=== PATIENT | female | born 1975 | race Caucasian/White ===

== ENCOUNTER 2017-04-23 18:09 | Outpatient (CLI) | payer OTHER ==
[~2017-04-23 18:09] MED LIST: ACET-141 PO; BUTA1CAP PO; DOCU-144 PO; ONDA4TAB8 PO; SERT-165 PO; ZOLP5TAB7 PO
[2017-04-23 18:42] VITALS: BP 118/75; PULSE 87; RESP 18
--- NOTE | 2017-04-23 19:14 | RADRPT ---
PROCEDURE: Obstetrical ultrasound for biophysical profile CLINICAL INDICATION: Biophysical profile. . TECHNIQUE: Obstetrical ultrasound of the uterus for biophysical profile. Transabdominal views are obtained. COMPARISON: US PELVIS 01/12/2016 FINDINGS: Single intrauterine gestation. Presentation: Cephalic. Placenta: Anterior. No evidence of placental abruption. No evidence of placenta previa. breathing movement = 2/2 tone = 2/2 motion = 2/2 ROBB = 2/2 ROBB = 11.8 cm heart rate: 156 beats per minute IMPRESSION: Single intrauterine gestation. Biophysical profile 12/23 RPTAT: AADD .Ricardo Villanueva MD, MD Date Time Electronically viewed and signed by .Ricardo Villanueva MD, on 04/23/2017 19:14 .B/
[2017-04-23] MEDS ORDERED: AL HYDROX/MG HYDROX/SIMETH 30 ML CUP PO ONE (21:00)
[2017-04-23 21:42] LABS: BARBITURATES Negative (NEGATIVE); BENZODIAZEPINES Negative (NEGATIVE); CANNABINOIDS Negative (NEGATIVE); COCAINE Negative (NEGATIVE); OPIATES Negative (NEGATIVE)
[2017-04-23] MEDS ORDERED: BEN50 PO (22:40)
[2017-04-23] MEDS ORDERED: UDROBDM PO (22:41)
--- NOTE | 2017-04-23 23:57 | PN ---
Triage Information Date/Time 04/23/1712/01/2344 Reason for visit: syncopal episodes s/p surgical procedure for brain aneurism 2.5yrs ago Weeks of Gestation IUP 29w2d /Para A3(sab) Diabetes: none Additional information hx of HTN c/o flu sx nasal congestion nausea and heart burn relieved with [place] Objective Vital Signs Date Time Temp Pulse Resp B/P Pulse Ox O2 Delivery O2 Flow Rate FiO2 04/23/17 18:42 98.0 87 18 118/75 99 Room Air Heart Rate: 150's Results/Medications Results 24 hrs Laboratory Tests Test 04/23/17 20:30 Urine Opiates Screen Negative Urine Barbiturates Negative Urine Amphetamines Screen Negative Urine Benzodiazepines Screen Negative Urine Cocaine Screen Negative Urine Cannabinoids Negative Imaging Results BPP 8 ROBB 11.8 Disposition: to ER for evaluation for syncope and flu syndrome Assessment/Plan syncope flue syndrome IUP 29w2d plan UDS to ER for evaluation for syncope and flu syndrome LISY DAUGHERTY MD Apr 23, 2017 23:57
--- NOTE | 2017-04-24 06:54 | TRIAGE ---
OB Triage Datetime Report Generated by CPN: 04/24/2017 01:44 Datetime: 04/23/2017 18:32 EGA: 29.2 Time Provider Notified: 04/23/2017 18:46 Provider Notified: Dr Miles Datetime: 04/23/2017 18:31 Time of Arrival: 04/23/2017 17:55 Arrived By: Stretcher Arrived From: Home Chief Complaint: syncope Movement: Present Contractions: Denies/Absent Rupture of Membranes: Denies Vaginal Bleeding: None Vaginal Discharge: Denies Recent Sexual Intercouse: Yes Abdominal Trauma: Not Applicable Patient Complaints: Other Additional Patient Complaints: Hx aneurysm 2 yrs ago w/ coil in place Initial Plan: efm/ u/s Datetime: 04/23/2017 18:15 Stage of : OB Triage Maternal Assessment Level of Consciousness: Fully Conscious DTR's/Clonus: DTRs 2+; No Clonus Headache: Denies Blurred Vision: No Respiratory Effort: Unlabored; Regular Rhythm; Equal Expansion Breath Sounds, Left: Clear and Equal Breath Sounds, Right: Clear and Equal Nausea/Vomiting: Denies RUQ Epigastric Pain: Denies Lower Extremities Edema: None Degree: None Upper Extremities Edema: None Degree: None Facial Edema: None Temperature Route: Oral Fall Risk Assessment History of Falling: (0) No Secondary Diagnosis: (0) No Ambulatory Aid: (0) Bedrest/Nurse Assist IV Therapy: (0) No Gait: (0) Normal/Bedrest/Immobile Mental Status: (0) Oriented to Own Ability Fall Score: 0 Fall Risk Score Definition: No Risk: No action required Labor Evaluation Frequency: none Monitor Mode: External Heart Rate FHR Baseline Rate: 153 Monitor Mode: External US Pain Assessment Pain Scale: 0
== END 2017-04-23 21:47 | disposition home or self-care (01) ==
LOC: OBT 18:09 → L-D 18:11 → OBT 21:47
DX: O26.893 Other specified pregnancy related conditions, third trimester (principal); R55 Syncope and collapse; O16.3 Unspecified maternal hypertension, third trimester; Z3A.29 29 weeks gestation of pregnancy
CPT/HCPCS: 76818; 80307; Z7500; Z7610; G0463

== ENCOUNTER 2017-04-23 21:50 | Emergency (ER) | payer OTHER ==
[~2017-04-23] VITALS: Ht 162.6 cm; Wt 77.0 kg
[2017-04-23 21:54] VITALS: Ht 162.6 cm; Wt 77.0 kg
--- NOTE | 2017-04-23 22:29 | ERD ---
ER Documentation Chief Complaint Chief Complaint FLU-LIKE SYMPTOMS HPI The patient is a 42-year-old female, presenting to the ER because of nasal congestion, nasal discharge, intermittent cough. She is 7 months , came to the ER from labor and delivery where she was cleared. She denies fever , chills, neck pain, chest pain, pleuritic chest pain, chest pain with exertion/ vomiting/diaphoresis, neck pain, vomiting, dysuria, diarrhea, constipation. She does not smoke nor drink Past medical history: Depression Surgical history: Brain aneurysm, D&C, cholecystectomy ROS All systems reviewed and are negative except as per history of present illness. Medications Home Meds Active Scripts Guaifenesin-Dextromethorphan* (Robitussin* DM) 100MG/10MG/5ML Syrup, 10 ML PO Q4H Y for COUGH, #120 ML Prov:ADAIR VANG MD 04/23/17 Diphenhydramine Hcl* (Benadryl*) 50 Mg Cap, 50 MG PO Q6 Y for congestion, #20 CAP Prov:ADAIR VANG MD 04/23/17 Discontinued Reported Medications Hcmgeeuuwj-Nopwrnsjsxllt-Craianzv* (Fwgvfstvks-Ekwlxtddxjwfj-Jfkbnlly*) 50-325- 40 Mg Capsule, 1 CAP PO HS for PAIN, CAP 03/09/15 Sertraline Hcl* (Sertraline Hcl*) 100 Mg Tablet, 100 MG PO DAILY, TAB 02/01/15 Zolpidem Tartrate* (Zolpidem Tartrate*) 5 Mg Tablet, 5 MG PO HS Y, TAB 02/01/15 Acetaminophen* (Acetaminophen*) 500 MG Extra Strength Tablet, 500 MG PO Q6 Y for PAIN AND OR ELEVATED TEMP, TAB 02/01/15 Discontinued Scripts Ondansetron Hcl* (Zofran*) 4 Mg Tablet, 4 MG PO Q6H for NAUSEA AND/OR VOMITING, #30 TAB Prov:DARREN PEREZ MD 02/08/15 Docusate Sodium* (Colace*) 100 Mg Capsule, 100 MG PO BID, #30 CAP Prov:REAGAN NORTON DO 02/02/15 Allergies Allergies: Coded Allergies: Penicillins (Verified Allergy, Intermediate, HIVES, 01/12/16) No Known Drug Allergy (Verified Allergy, Mild, 04/23/17) PMhx/Soc History of Surgery: Yes (S/P coiling of aneurysm 07/2014) Anesthesia Reaction: No Hx Neurological Disorder: Yes (CVA) Hx Respiratory Disorders: No Hx Cardiac Disorders: No Hx Psychiatric Problems: Yes (depression) Hx Miscellaneous Medical Probl: Yes (depression, cocaine use, aneurysm) Hx Alcohol Use: No Hx Substance Use: Yes (Methamphetamine and cocaine) Hx Tobacco Use: No Physical Exam Vitals Vital Signs Date Time Temp Pulse Resp B/P Pulse Ox O2 Delivery O2 Flow Rate FiO2 04/23/17 21:54 98.3 105 18 131/82 100 Physical Exam Const: No acute distress. Head: Atraumatic. Eyes: Normal Conjunctiva. ENT: Normal External Ears, Nose and Mouth. BL Tympanic membranes and oropharynx are within normal limits Neck: Full range of motion. No meningismus. Resp: Clear to auscultation bilaterally. Cardio: Regular rate and rhythm. Abd: Soft, non distended, normal bowel sounds, non tender. Skin: No petechiae or rashes. Back: No midline or flank tenderness. Ext: No cyanosis, or edema. Neur: Awake and alert. No focal deficit Psych: Normal Mood and Affect. Procedures/MDM MEDICAL MAKING DECISION: The patient is a 42-year-old female, presenting to the ER because of acute viral syndrome, stable for outpatient follow-up The differential diagnoses considered include but are not limited to influenza, bronchitis, pneumonia, PE, pneumothorax Departure Diagnosis: Primary Impression: Viral syndrome Condition: Good Comments She was discharged with Benadryl and Robitussin-DM The patient's blood pressure was elevated (>120/80) but appears stable without evidence of hypertension emergency or urgency. The patient was counseled about the risks of hypertension and urged to pursue outpatient monitoring and therapy within a week with their primary care physician. I discussed the findings with the patient. I advised the patient to follow-up with the primary physician in about 1-2 days, sooner if needed and return if any concern. Disclaimer: Inadvertent spelling and grammatical errors are likely due to EHR/ dictation software use and do not reflect on the overall quality of patient care. Also, please note that the electronic time recorded on this note does not necessarily reflect the actual time of the patient encounter. ADAIR VANG MD Apr 23, 2017 22:29
[2017-04-23] MEDS ORDERED: BEN50 PO (22:40)
[2017-04-23] MEDS ORDERED: UDROBDM PO (22:41)
== END 2017-04-23 23:06 | disposition home or self-care (01) ==
LOC: FTE 21:50
DX: B34.9 Viral infection, unspecified (principal)
CPT/HCPCS: 99283

== ENCOUNTER 2017-05-08 17:12 | Outpatient (CLI) | payer OTHER ==
[~2017-05-08] VITALS: Ht 170.2 cm; Wt 80.3 kg
[~2017-05-08 17:12] MED LIST changes: -ACET-141 PO; +BEN50 PO; -BUTA1CAP PO; -DOCU-144 PO; -ONDA4TAB8 PO; -SERT-165 PO; +UDROBDM PO; -ZOLP5TAB7 PO
[2017-05-08 17:33] VITALS: BP 129/88; PULSE 98; Ht 170.2 cm; Wt 80.3 kg
[2017-05-08] MEDS ORDERED: PNV11TAB PO (17:36)
[2017-05-08] MEDS ORDERED: LEVE-5 PO (17:43)
[2017-05-08 18:23] LABS: ADD UMIC NO; UR ASCORBIC ACID NEGATIVE (NEGATIVE); UR BILIRUBIN (Dip) NEGATIVE (NEGATIVE); UR BLOOD (Dip) NEGATIVE (NEGATIVE); UR CLARITY CLEAR (CLEAR); UR COLOR YELLOW (YELLOW); UR GLUCOSE (Dip) NEGATIVE (NEGATIVE); UR KETONES (Dip) NEGATIVE (NEGATIVE); UR LEUKOCYTE ESTERASE (Dip) NEGATIVE Leu/ul (NEGATIVE); UR NITRITE (Dip) NEGATIVE (NEGATIVE); UR SPECIFIC GRAVITY (Dip) 1.017 (1.003-1.030); UR TOTAL PROTEIN (Dip) NEGATIVE (NEGATIVE); UR UROBILINOGEN (Dip) NEGATIVE (NEGATIVE)
[2017-05-08 18:41] LABS: BASOPHILS % 0.3 % (0.0-2.0); EOSINOPHILS # 0.2 10^3/ul (0.0-0.5); EOSINOPHILS % 1.7 % (0.0-7.0); HEMATOCRIT 35.6 % (37.0-47.0); HEMOGLOBIN 12.3 g/dl (12.0-16.0); LYMPHOCYTES # 2.2 10^3/ul (0.8-2.9); LYMPHOCYTES % 23.9 % (15.0-51.0); MEAN CORPUSCULAR HEMOGLOBIN 30.3 pg (29.0-33.0); MEAN CORPUSCULAR HGB CONC 34.6 g/dl (32.0-37.0); MEAN CORPUSCULAR VOLUME 87.7 fl (82.0-101.0); MEAN PLATELET VOLUME 10.9 fl (7.4-10.4); MONOCYTE # 0.6 10^3/ul (0.3-0.9); MONOCYTES % 6.4 % (0.0-11.0); NEUTROPHIL # 6.1 10^3/ul (1.6-7.5); NEUTROPHILS % 67.4 % (39.0-77.0); PLATELET COUNT 279 10^3/UL (140-415); RED BLOOD COUNT 4.06 10^6/ul (4.20-5.40); RED CELL DISTRIBUTION WIDTH 14.6 % (11.5-14.5); WHITE BLOOD COUNT 9.1 10^3/ul (4.8-10.8)
--- NOTE | 2017-05-08 18:59 | RADRPT ---
PROCEDURE: US OB. US OB Estimated Weight CLINICAL INDICATION: ptl TECHNIQUE: Multiple sonographic images of the pelvis were obtained. The images were reviewed on a PACS workstation. COMPARISON: 04/23/2017 FINDINGS: The cervix is closed with a length of . There is a single viable intrauterine gestation. Cardiac activity is present with 161 beats per min ami. There is a vertex presentation. Measurements were made in order to determine age. The results are as follows: BPD =7.4 cm. HC =27.1 cm. AC =27.8 cm. FL =6.0 cm. Estimated gestational age of approximately 30 weeks and 5 days. The estimated date of delivery is 07/12/2017. Estimated delivery date by last menstrual period is 0 07/07/2017. The EFW = 1735 grams . The placenta is anterior. There is no evidence for an abruption or placenta previa. IMPRESSION: Single viable intrauterine gestation of approximately 30 weeks and 5 days. The estimated date of de livery is 07/12/2017. RPTAT: DD . .Tono eBth MD, Date Time Electronically viewed and signed by .Tono Beth MD, MD on 05/08/2017 18:58 .T/
--- NOTE | 2017-05-08 19:00 | RADRPT ---
PROCEDURE: US biophysical profile. CLINICAL INDICATION: PTL. well-being. TECHNIQUE: Multiple sonographic images of the uterus were obtained. The images were revi ewed on a PACS workstation. COMPARISON: 04/23/2017. FINDINGS: There is a single live intrauterine gestation. heart rate is 156 beats per minute. The position is cephalic. The placenta is anterior, grade 1. The ROBB is 12.1 cm. The cervical length measures 3.2 cm. Breathing Movement: 2 Gross Body Movement: 2 Tone: 2 Qualitative Amniotic Fluid Volume: 2 TOTAL: 8 IMPRESSION: 1. Single viable intrauterine gestation. 2. Biophysical profile = 12/23. 3. ROBB = 12.1 cm. 4. The cervical length measures 3.2 cm. RPTAT: HFN .Neo Johnson MD, MD Date Time Electronically viewed and signed by .Neo Johnson MD, MD on 05/08/2017 19:00 .N/
--- NOTE | 2017-05-08 19:57 | PN ---
Triage Information Date/Time Reason for visit: Uterine contractions Weeks of Gestation 31w 3d /Para Objective Vital Signs Date Time Temp Pulse Resp B/P Pulse Ox O2 Delivery O2 Flow Rate FiO2 05/08/17 17:33 98.3 98 129/88 Heart Rate Comments reactive Contractions: None Exam FFN neg Results/Medications Result Diagram: 05/08/17 1759 Results 24 hrs Laboratory Tests Test 05/08/17 17:35 05/08/17 17:59 05/08/17 18:00 Urine Color YELLOW Urine Clarity CLEAR Urine pH 7.0 Urine Specific [place] 1.017 Urine Ketones NEGATIVE Urine Nitrite NEGATIVE Urine Bilirubin NEGATIVE Urine Urobilinogen NEGATIVE Urine Leukocyte Esterase NEGATIVE Urine Hemoglobin NEGATIVE Urine Glucose NEGATIVE Urine Total Protein NEGATIVE White Blood Count 9.1 Red Blood Count 4.06 L Hemoglobin 12.3 Hematocrit 35.6 L Mean Corpuscular Volume 87.7 Mean Corpuscular Hemoglobin 30.3 Mean Corpuscular Hemoglobin Concent 34.6 Red Cell Distribution Width 14.6 H Platelet Count 279 Mean Platelet Volume 10.9 #H Neutrophils % 67.4 Lymphocytes % 23.9 Monocytes % 6.4 Eosinophils % 1.7 Basophils % 0.3 Nucleated Red Blood Cells % 0.0 Neutrophils # 6.1 Lymphocytes # 2.2 Monocytes # 0.6 Eosinophils # 0.2 Basophils # 0.0 Nucleated Red Blood Cells # 0.0 Fibronectin NEGATIVE Imaging Results BPP 8/, ROBB 12.1, CL 3.2cm Disposition: Discharge ARIADNE CARMICHAEL May 08, 2017 19:57
--- NOTE | 2017-05-08 20:16 | TRIAGE ---
OB Triage Datetime Report Generated by CPN: 05/08/2017 20:16 Datetime: 05/08/2017 19:50 Stage of : OB Triage Datetime: 05/08/2017 17:44 Stage of : OB Triage Datetime: 05/08/2017 17:30 Stage of : OB Triage Assessment Type: Triage Maternal Assessment Level of Consciousness: Fully Conscious DTR's/Clonus: DTRs 2+; No Clonus Headache: Denies Blurred Vision: No Respiratory Effort: Unlabored; Regular Rhythm; Equal Expansion Breath Sounds, Left: Clear and Equal Breath Sounds, Right: Clear and Equal Nausea/Vomiting: Denies RUQ Epigastric Pain: Denies Facial Edema: None Temperature Route: Axillary Fall Risk Assessment History of Falling: (0) No Secondary Diagnosis: (0) No Ambulatory Aid: (0) Bedrest/Nurse Assist IV Therapy: (0) No Gait: (0) Normal/Bedrest/Immobile Mental Status: (0) Oriented to Own Ability Fall Score: 0 Fall Risk Score Definition: No Risk: No action required Labor Evaluation Frequency: 0 Monitor Mode: External Resting Tone [place]: Relaxed Heart Rate FHR Baseline Rate: 145 Monitor Mode: External US Variability: Moderate 6-25 bpm Accelerations: 10X10 Decelerations: None Category: Category I Pain Assessment Pain Scale: 7 Pain Presence: Intermittent Pain Type: Cramping Pain Location: Abdomen Pain Goal: 3 Pain Relief Measures: Comfort Measures Datetime: 05/08/2017 17:28 Time of Arrival: 05/08/2017 17:01 EGA: 31.3 Arrived By: Ambulatory Arrived From: Home Chief Complaint: C/O UC'S (ABDOMINAL PAIN) SINCE YESTERDAY THAT HAS GOTTEN PROGRESSIVELY WORSE. DE NIES LEAKING OR BLEEDING FREQUENCY OF URINATION, RT FLANK PAIN Movement: Present Contractions: Irregular Contractions: 10-15 Rupture of Membranes: Denies Vaginal Discharge: Denies Recent Sexual Intercouse: Denies Abdominal Trauma: Not Applicable Additional Patient Complaints: hx of aneurysm 2 years ago, now has seizures, Time Provider Notified: 05/08/2017 19:28 Provider Notified: UAJE Initial Plan: MONITOR, u/a C_s, cl, ffn, cbc, efw, bpp Datetime: 04/23/2017 21:20 Stage of : OB Triage Datetime: 04/23/2017 20:24 Stage of : OB Triage Monitor Mode: External Pattern: Normal: <= 5 Contractions in 10 Minutes Resting Tone [place]: Relaxed Heart Rate FHR Baseline Rate: 150 Monitor Mode: External US Datetime: 04/23/2017 19:59 Stage of : OB Triage Monitor Mode: External Quality: Mild Pattern: Normal: <= 5 Contractions in 10 Minutes Resting Tone [place]: Relaxed Heart Rate FHR Baseline Rate: 155 Monitor Mode: External US FHR Baseline Changes: No Baseline Change Variability: Moderate 6-25 bpm Accelerations: 15X15 Category: Category I Datetime: 04/23/2017 19:19 Stage of : OB Triage Maternal Assessment Level of Consciousness: Fully Conscious Headache: Denies Blurred Vision: No Nausea/Vomiting: Denies RUQ Epigastric Pain: Denies Facial Edema: None Pattern: Normal: <= 5 Contractions in 10 Minutes Resting Tone [place]: Relaxed Heart Rate FHR Baseline Rate: 140 Monitor Mode: External US FHR Baseline Changes: No Baseline Change Variability: Moderate 6-25 bpm Accelerations: 15X15 Pain Assessment Pain Scale: 0 Pain Presence: None/Denies Pain Type: N/A Datetime: 04/23/2017 18:32 EGA: 29.2 Datetime: 04/23/2017 18:15 Fall Score: 0 Fall Risk Score Definition: No Risk: No action required
== END 2017-05-08 19:50 | disposition home or self-care (01) ==
LOC: OBT 17:12 → L-D 17:14 → OBT 19:50
PROVIDERS: ATTEND Obstetrics & Gynecology
DX: O62.9 Abnormality of forces of labor, unspecified (principal); O09.523 Supervision of elderly multigravida, third trimester; Z3A.31 31 weeks gestation of pregnancy
CPT/HCPCS: 76815; 76817; 76818; 81003; 82731; 85025; 87086; Z7500; G0463

== ENCOUNTER 2017-05-20 14:40 | Inpatient (IN) | END 2017-05-22 14:15 | disposition home or self-care (01) | DRG 781 ==

== ENCOUNTER 2017-05-25 09:40 | Outpatient (CLI) | END 2017-05-25 13:35 | disposition home or self-care (01) ==

== ENCOUNTER 2017-05-27 18:40 | Inpatient (IN) | END 2017-05-31 16:32 | disposition home or self-care (01) | DRG 765 ==